=== PATIENT | female | born 1985 | race Caucasian/White ===

== ENCOUNTER → 2016-10-31 | Outpatient (CLI) | payer OTHER ==
[~2016-10-31] VITALS: Ht 162.6 cm; Wt 50.8 kg
[~2016-10-31] MED LIST: CALCIUM PETITE1 EACH PO; MOTRIN800 MG PO; NOHOMEMEDS; PROBIOTIC1 EAC2 PO
[2016-11-02 12:40] LABS: INTERNAL CONTROL VALID? YES
== END | disposition home or self-care (01) ==
LOC: AMB 12:51
PROVIDERS: Anesthesiology
DX: K20.9 Esophagitis, unspecified (principal); R14.0 Abdominal distension (gaseous); R10.9 Unspecified abdominal pain; R11.0 Nausea; K59.00 Constipation, unspecified
CPT/HCPCS: 84703; 88305; B4087; J2250; J3010

== ENCOUNTER 2017-02-21 09:17 | Emergency (ER) | payer OTHER ==
[~2017-02-21] VITALS: Ht 162.6 cm; Wt 50.5 kg
[2017-02-21 10:04] LABS: HEMATOCRIT 41.6 % (36.0-46.0); MCH 27.1 PG (29.0-34.0); MCHC 32.5 G/DL (30.0-36.0); MCV 83.5 FL (83-99); MEAN PLAT.VOLUME 9.5 uM^3 (9.5-12.4); PLATELET COUNT 290 K/uL (156-360); RBC DIS.WIDTH-CV 13.2 % (11.8-14.6); RED BLOOD COUNT 4.98 M/uL (3.80-5.20); WHITE BLOOD COUNT 7.3 K/uL (4.1-10.2)
[2017-02-21 10:12] LABS: CHLORIDE 106 mEq/L (99-109); D-DIMER ELISA < 0.15 mg/L FEU (< 0.57); POTASSIUM 3.9 mEq/L (3.7-5.4); SODIUM 138 mEq/L (136-147)
[2017-02-21 10:14] LABS: GLUCOSE 83 mg/dL (70-99)
[2017-02-21 10:16] LABS: ANION GAP 11 MEQ/L (2-14)
[2017-02-21 10:18] LABS: GFR ESTIMATE (CALCULATED) > 59 mL/min/
[2017-02-21 10:19] LABS: UREA NITROGEN (BUN) 10 mg/dL (9-23)
[2017-02-21 10:26] LABS: TROP-I INTERPRETATION NEGATIVE; TROPONIN-I < 0.01 ng/mL (0.0-0.30)
[2017-02-21 10:29] LABS: QUANTITATIVE HCG < 4.0 MIU/ML
[2017-02-21 10:53] LABS: ADD MIUA? NO; BILIRUBIN NEGATIVE; BLOOD NEGATIVE; COLOR STRAW ((YELLOW)); GLUCOSE (STRIP) NEGATIVE; KETONES NEGATIVE; LEUKOCYTES NEGATIVE; NITRITE NEGATIVE; PROTEIN (STRIP) NEGATIVE; SPECIFIC GRAVITY 1.004 (1.000-1.030); UROBILINOGEN 0.2 MG/DL (0.2-1.0)
[2017-02-21 11:09] VITALS: BP 101/72
== END 2017-02-21 11:11 | disposition home or self-care (01) ==
LOC: EME 09:17
PROVIDERS: Nurse Practitioner Family
DX: R00.2 Palpitations (principal); J45.909 Unspecified asthma, uncomplicated; F32.9 Major depressive disorder, single episode, unspecified
CPT/HCPCS: 71020; 80048; 81003; 84484; 84702; 85027; 85379; 93005; 99281; 99284